=== PATIENT | male | born 1970 | race Caucasian/White ===

== ENCOUNTER 2021-03-11 11:47 | Outpatient (REF) | payer OTHER, SELFPAY | END 2021-03-11 11:48 | disposition home or self-care (01) | LOC: HO.LAB 11:47 | PROVIDERS: PCP Internal Medicine; Visit Provider Internal Medicine | DX: Z20.822 Contact with and (suspected) exposure to COVID-19 (principal) | CPT/HCPCS: C9803; U0003; U0005 ==

== ENCOUNTER 2021-03-27 21:31 | Emergency (ER) | payer OTHER, SELFPAY ==
--- NOTE | 2021-03-27 | ECG_ITS ---
Test Reason : OVERDOSE Blood Pressure : / mmHG Vent. Rate : 090 BPM Atrial Rate : 090 BPM P-R Int : 174 ms QRS Dur : 110 ms QT Int : 384 ms P-R-T Axes : 035 041 023 degrees QTc Int : 469 ms Normal sinus rhythm Incomplete right bundle branch block Borderline ECG When compared with ECG of 27-SEP-2019 06:37, No significant change was found Referred By: Generic ED Physician Electronically Signed By:YANY SHIN MD
[2021-03-27 21:50] VITALS: BP 136/87; BP 158/92; PULSE 100; PULSE 107; RESP 16; TEMP 36.6; O2SAT 100; O2SAT 97; BMI 33.0
[2021-03-27 22:26] LABS: Basophils Percent Auto 0.2 % (0-2); Eosinophils Percent Auto 0.5 % (0-4); Hematocrit 40.9 % (42.0-52.0); Hemoglobin 14.5 g/dl (14.0-18.0); Imm Gran Abs Auto 0.02 X10*3/uL (0.00-0.03); Imm Gran Pct Auto 0.2 % (0.0-0.4); Lymphocytes Absolute Auto 1.1 X10*3/uL (1.2-4.9); MANUAL DIFF FLAG NO; Mean Corpuscular HGB Conc 35.5 g/dl (31.0-36.0); Mean Corpuscular Hemoglobin 32.7 pg (27.0-33.0); Mean Corpuscular Volume 92.3 fL (80.0-98.0); Mean Platelet Volume 9.1 fL (9.4-12.4); Monocytes Absolute Auto 0.5 X10*3/uL (0.1-1.2); Monocytes Percent Auto 5.6 % (2-11); Neutrophils Absolute Auto 6.7 x10*3/uL (2.0-8.3); Neutrophils Percent Auto 80.5 % (45-73); Platelet Count 209 X10*3/uL (160-400); Red Blood Count 4.43 X10*6/uL (4.60-5.80); Red Cell Distribution Width 11.9 % (11.0-16.0); White Blood Count 8.3 X10*3/uL (4.8-10.8)
--- NOTE | 2021-03-27 22:28 | ED_ITS ---
HPI - Overdose General Chief Complaint: ETOH/Substance Use Stated Complaint: OD Time Seen by Provider: 03/27/21 22:27 Source: patient Mode of arrival: EMS History of Present Illness HPI Narrative: 51-year-old male who presents via EMS after being found unresponsive after using 1 bag of heroin and received 4 mg of Narcan in the field with good response. Patient states he typically uses monthly and that this has not happened before. Otherwise, he denies any medical problems and denies any thoughts depression or suicidal ideation. Related Data Allergies Allergy/AdvReac Type Severity Reaction Status Date / Time No Known Allergies Allergy Unverified 01/17/20 15:38 Review of Systems Review of Systems: Pertinent positives and negatives as stated in HPI 10 point review of systems is otherwise negative. PMFSH Past Medical History Source: nursing notes reviewed Medical History Substance abuse Surgical History No history of previous surgery Social History Social History Alcohol intake: never Patient Tobacco Use Status: Never used Tobacco Use of substances other than those prescribed or required for medical reasons: Yes Substance Use Type: Crack/Cocaine and Heroin Substance Use Frequency: Chronic Longstanding Last Used Substance: Just Prior to Admission Any prior treatment program specific to substance use: No Advance Directives: No Advance Directives Information Provided: Yes Physical Exam Vital Signs: Vital Signs: Last Vital Signs Temp 97.9 F 03/27/21 21:50 Pulse 100 03/27/21 21:50 Resp 16 03/27/21 21:50 BP 136/87 03/27/21 21:50 Pulse Ox 100 03/27/21 21:50 Body Mass Index 33.0 VITAL SIGNS: Reviewed. GENERAL: Well developed, well nourished, in no acute distress. HEAD: Normocephalic/atraumatic EYES: PERRLA, EOMI OROPHARYNX: no oral lesions noted, posterior pharynx clear NECK: Supple, no adenopathy LUNGS: Normal breath sounds. No adventitious sounds or accessory muscle use. SpO2<100> CARDIOVASCULAR: Regular rate and rhythm without noted murmurs ABDOMEN: Soft, non-tender, non-distended with bowel sounds. SKIN: Inspection of the skin reveals no rashes NEUROLOGIC: Alert and oriented x 4. Strength and sensation to light touch were grossly intact x 4. Course Course Course Narrative: 51-year-old male with history and clinical presentation consistent with accidental overdose, he will be observed here in the emergency room and is noted be alert and oriented x4 at this time and no concerning history or clinical findings psychiatric component. Patient was discharged with home Narcan. MDM - Overdose Lab Data Result diagrams: 03/27/21 22:19 03/27/21 22:19 Labs: Lab Results 03/27/21 03/27/21 Range/Units 22:19 22:19 WBC 8.3 (4.8-10.8) X10*3/uL RBC 4.43 L (4.60-5.80) X10*6/uL Hgb 14.5 (14.0-18.0) g/dl Hct 40.9 L (42.0-52.0) % MCV 92.3 (80.0-98.0) fL MCH 32.7 (27.0-33.0) pg MCHC 35.5 (31.0-36.0) g/dl RDW 11.9 (11.0-16.0) % Plt Count 209 (160-400) X10*3/uL MPV 9.1 L (9.4-12.4) fL Immature Gran % (Auto) 0.2 (0.0-0.4) % Neut % (Auto) 80.5 H (45-73) % Lymph % (Auto) 13.0 L (20-40) % [place] % (Auto) 5.6 (2-11) % Eos % (Auto) 0.5 (0-4) % Baso % (Auto) 0.2 (0-2) % Lymph # (Auto) 1.1 L (1.2-4.9) X10*3/uL [place] # (Auto) 0.5 (0.1-1.2) X10*3/uL Eos # (Auto) 0.0 (0.0-0.4) X10*3/uL Baso # (Auto) 0.0 (0.0-0.2) X10*3/uL Abs Immat Gran (auto) 0.02 (0.00-0.03) X10*3/uL Absolute Neuts (auto) 6.7 (2.0-8.3) x10*3/uL Absolute Nucleated RBC 0.000 (0.0-0.012) X10*3/uL Nucleated RBC % (auto) 0.0 (0.0-0.2) /100WBC Sodium 138 (135-145) mmol/L Potassium 3.1 L (3.3-5.1) mmol/L Chloride 104 (96-108) mmol/L Carbon Dioxide 22 (22-29) mmol/L Anion Gap 15 (12-20) BUN 14 (9-16) mg/dL Creatinine 1.00 (0.5-1.4) mg/dL Estim Creat Clear Calc 91.1 Estimated GFR > 60 Random Glucose 218 H (60-115) mg/dL Calcium 8.4 (8.4-10.2) mg/dL Total Bilirubin 0.6 (0.0-1.0) mg/dL AST 21 (5-37) U/L ALT 28 (0-40) U/L Alkaline Phosphatase 67 (39-117) U/L Total Protein 6.8 (6.5-8.0) g/dL Albumin 4.4 (3.5-5.0) g/dL ECG Data Attestation: I personally reviewed and interpreted this ECG as follows: Prior ECG tracings: available for review (09/27/2019 no acute changes on comparison) Interpretation: Sinus rhythm, HR-90, incomplete right bundle branch block, VT/QTC are within normal limits. Discharge Plan Discharge Clinical Impression: Overdose Patient Disposition: Home, Self-Care Instructions: Adult Overdose (ED) Additional Instructions: Return to the ER for worsening symptoms. Referrals: Aditya Perez MD [Primary Care Provider] - 2 days
[2021-03-27 22:43] LABS: Alanine Aminotransferase 28 U/L (0-40); Albumin Level 4.4 g/dL (3.5-5.0); Alkaline Phosphatase 67 U/L (39-117); Anion Gap 15 (12-20); Aspartate Amino Transferase 21 U/L (5-37); Bilirubin Total 0.6 mg/dL (0.0-1.0); Blood Urea Nitrogen 14 mg/dL (9-16); Calcium 8.4 mg/dL (8.4-10.2); Carbon Dioxide 22 mmol/L (22-29); Chloride 104 mmol/L (96-108); Creatinine Clr Calc Pharmacy 91.1; Estimated Glomerular Filt Rate > 60; Glucose Random 218 mg/dL (60-115); Potassium 3.1 mmol/L (3.3-5.1); Sodium 138 mmol/L (135-145); Total Protein 6.8 g/dL (6.5-8.0)
--- NOTE | 2021-03-27 22:51 | MHC.CARE ---
CARE team attempted to meet with pt, and pt was meeting with ED provider. CARE team attempted 2nd time and pt was d/c by provider with vani. No concern for SI/HI.
--- NOTE | 2021-03-27 22:56 | MHC.CARE ---
Disregard previous note, CARE team met with pt. Pt reports he is really tired . Pt declined any tx or SUDE evaluation. Pt reports he goes to AA, and has a sponsor. Pt reports that he has already called and put himself on a waitlist for IOP. Pt reports this typically does not happen for him and feels safe to return home. No SI/HI. Appears tired. Per providers note, pt will be d/c home.
[2021-03-28] MEDS: Naloxone HCl Nasal TAKE HOME 4 MG SPRAY NOSTRILALT (00:13)
[2021-03-28] MEDS: Potassium Chloride ER 20 MEQ TAB.ER.PRT 60 MEQ PO (00:14)
== END 2021-03-28 00:07 | disposition home or self-care (01) ==
PROVIDERS: Emergency Provider Student in an Organized Health Care Education/Training Program; PCP Internal Medicine
DX: T40.1X1A Poisoning by heroin, accidental (unintentional), initial encounter (principal); R40.4 Transient alteration of awareness; Y92.9 Unspecified place or not applicable
CPT/HCPCS: 36415; 80053; 85025; 93005; 99284

== ENCOUNTER 2022-11-28 15:52 | Emergency (ER) | payer OTHER, SELFPAY ==
--- NOTE | ~2022-11-28 | XR_ITS ---
EXAMINATION: XR KNEE, RIGHT CLINICAL INFORMATION: Fall COMPARISON: None available. TECHNIQUE: Four views of the right knee. FINDINGS: No fracture or dislocation. No suprapatellar joint effusion. Mild narrowing of the medial joint space height. Enthesophyte off the superior patellar pole. No focal soft tissue swelling of the anterior knee. XR/XR knee RT 3V IMPRESSION: Mild degenerative changes of the right knee without fracture.
[2022-11-28 15:57] VITALS: BP 167/83; PULSE 104; RESP 18; TEMP 36; O2SAT 97; BMI 35.3
--- NOTE | 2022-11-28 15:58 | ED_ITS ---
HPI - Extremity Injury (Lower) General Chief Complaint: Extremity Injury, Lower Stated Complaint: right knee injury from fall Time Seen by Provider: 11/28/22 16:48 Source: patient and RN notes reviewed Mode of arrival: ambulatory Limitations: no limitations History of Present Illness HPI Narrative: This is a 52-year-old male presenting to the emergency department with complaints of right knee pain since today. Patient reports that patient was carrying a basket and fell directly onto his right knee. He states that he slightly twisted his right knee. He has been able to bear weight on his right knee however reports pain with walking and with weight-bearing. Reports occasional pain to his knees however no other trauma, injury or surgeries to his knees. Denies any fevers or chills. He denies hitting his head or loss of consciousness. He is otherwise feeling well. No other complaints or concerns at this time. MD complaint: knee injury Onset (ago): day(s) Type of Injury: blunt Place: home Severity: moderate Relieving factors: nothing Exacerbating factors: nothing Associated symptoms: able to partially bear weight Other symptoms: none Related Data Allergies Allergy/AdvReac Type Severity Reaction Status Date / Time No Known Allergies Allergy Verified 11/28/22 16:00 Review of Systems Review of Systems: Yes all other systems are reviewed and are negative PMFSH Past Medical History Attestation statement: The following information was validated with the patient. Medical History Substance abuse Surgical History No history of previous surgery Social History Social History Alcohol intake: never Patient Tobacco Use Status: Never used Tobacco Smoked in Last 30 Days: No Use of substances other than those prescribed or required for medical reasons: No Substance Use Type: Crack/Cocaine and Heroin Advance Directives: No Advance Directives Information Provided: Yes Physical Exam Vital Signs: Vital Signs: Last Vital Signs Temp 98 F 11/28/22 17:41 Pulse 95 11/28/22 17:41 Resp 18 11/28/22 17:41 BP 144/91 H 11/28/22 17:41 Pulse Ox 99 11/28/22 17:41 O2 Del Method Room Air 11/28/22 17:41 BMI result Body Mass Index 35.3 Const: Other: General: Awake, alert, and oriented X3. No acute distress. HEENT: Normal inspection CVS: Normal heart rate and rhythm. Pulses normal. Respiratory: No respiratory distress Skin: Warm, dry, no rashes noted to exposed skin. Normal skin color. Normal skin turgor. Extremities: Right knee with obvious deformity or swelling. Patient has tenderness to palpation along the medial joint line. No laxity with varus and valgus strain. No tenderness with posterior and anterior drawer test. Distal sensation circulation intact. No erythema or ecchymosis noted. Range of motion is full and intact however with pain elicited Neuro: Oriented X 3. No motor deficit. No sensory deficit. Course Course Course Narrative: This is a rapid medical exam. Deferred additional HPI, ROS, PE to primary provider. 52 yo male here with right knee after a trip and fall landing direct on the knee. No additional injury. Will check x-rays. VSS Reevaluation(s) Reevaluation #1: Discussed with patient that patient has degenerative changes in his right knee, but no fractures seen. Discussed at length that x-rays can only see bones, no ligaments or tendons. Symptoms likely due to knee contusion versus any sprain, strain will treat conservatively with Seth wrap, NSAIDs, rest and ice. Patient given referral to Orthopedics for further treatment and evaluation. Patient declines crutches at this time. Patient understands and agrees with plan. Patient stable for discharge. Medical Decision Making Medical Decision Making MDM Narrative: 52-year-old male presenting to the emergency department for evaluation of right knee pain since today. He had a mechanical fall and landed directly onto his right knee. On arrival, patient mildly hypertensive, likely due to pain. Symptoms and clinical suspicion for knee contusion versus internal derangement of ligaments. Patellar fracture unlikely given patella is nontender. Will obtain x-ray for rule out. Patient is ambulatory with steady gait. Plan: X-ray Differential Diagnosis Differential Diagnoses: The differential diagnosis associated with the presentation includes Patellar fracture, knee contusion, knee sprain, strain, septic joint - unlikely Independent Interpretation I performed an independent interpretation of an: Plain X-Ray Interpretation: X-rays reviewed by me, and I agree with radiology report. Radiology Impression Discussion of test interpretation with radiology: I have reviewed the radiologist's reading. Radiologist Impression: EXAMINATION: XR KNEE, RIGHT? CLINICAL INFORMATION: Fall? COMPARISON: None available.? TECHNIQUE: Four views of the right knee. FINDINGS: No fracture or dislocation. No suprapatellar joint effusion. Mild narrowing of the medial joint space height. Enthesophyte off the superior patellar pole. No focal soft tissue swelling of the anterior knee.? XR/XR knee RT 3V IMPRESSION: Mild degenerative changes of the right knee without fracture. ? Dictated By: Aditya Varghese MD Signed By: <Electronically signed by Aditya Varghese MD in [place]> 11/28/22 1705 DD/ 1609 TD/TT:? Precipitation Equipment Tender: PD Discharge Plan Discharge Clinical Impression: Right knee sprain Patient Disposition: Home, Self-Care Instructions: Knee Sprain (ED), How to Use an Elastic Bandage (ED) Additional Instructions: Please rest, ice, use Seth wrap and elevate your right leg. Please perform gentle movements of your right knee and leg. Please follow-up with Orthopedics, call to make an appointment. Take ibuprofen or Tylenol as needed for your symptoms. If any new or worsening symptoms occur please return for re-evaluation. Referrals: [facility] [Provider Group] Interventions: ED Discharge Assessment Last Done: 11/28/22 17:49 Discharge Date/Time: 11/28/22 17:49
[2022-11-28 17:41] VITALS: BP 144/91; PULSE 95; RESP 18; TEMP 36.6; O2SAT 99
--- NOTE | 2022-11-28 17:48 | PC.NURSE ---
refused constanza eugene aware. applied aj wrap. aox4. no distress
== END 2022-11-28 17:49 | disposition home or self-care (01) ==
PROVIDERS: Emergency Provider Internal Medicine; PCP Internal Medicine
DX: M25.561 Pain in right knee (principal)
CPT/HCPCS: 73562; 99284

== ENCOUNTER 2022-12-02 13:21 | Outpatient (AMB) | payer OTHER, SELFPAY ==
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
[2022-12-02 13:40] VITALS: BMI 35.2
== END 2022-12-02 14:09 | disposition home or self-care (01) ==
PROVIDERS: PCP Internal Medicine; Visit Provider Orthopaedic Surgery
DX: S83.241A Other tear of medial meniscus, current injury, right knee, initial encounter (principal)
CPT/HCPCS: 99202

== ENCOUNTER → 2022-12-02 13:21 | Outpatient (BNVA) | payer OTHER, SELFPAY | PROVIDERS: PCP Internal Medicine; Visit Provider Orthopaedic Surgery | DX: S83.241A Other tear of medial meniscus, current injury, right knee, initial encounter (principal) | CPT/HCPCS: 99202 ==

== ENCOUNTER 2023-04-09 11:23 | Emergency (ER) | payer OTHER, SELFPAY ==
[2023-04-09 12:01] VITALS: BP 158/94; PULSE 93; RESP 19; TEMP 36.6; O2SAT 98; BMI 34.8
--- NOTE | 2023-04-09 12:01 | ED_ITS ---
HPI - Neck Pain/Injury General Chief Complaint: Extremity Problem Stated Complaint: neck pain Time Seen by Provider: 04/09/23 13:09 Source: patient Mode of arrival: ambulatory Limitations: no limitations History of Present Illness HPI Narrative: Patient is a 53 year old assigned male at with no reported medical history presenting to the emergency department today with left sided neck pain. Patient states that 2 days ago he was moving some boxes and tweaked his neck. Patient states that he has had pain ever since. Patient denies any dizziness, lightheadedness, abdominal pain, nausea, vomiting, fever, chills, blurry vision, double vision, loss of vision, chest pain, difficulty breathing, shortness of breath, back pain, night sweats, pain with urination, increased urinary frequency, increased urinary urgency, blood in his urine or stool, syncope or a near syncopal episode, bowel incontinence, bladder incontinence, bowel retention, bladder retention, or any other complaints at this time. MD complaint: neck pain Onset (ago): day(s) (2) Severity: mild Severity scale (1-10): 3 Quality: dull Relieving factors: none Exacerbating factors: movement of neck Associated symptoms: none Treatments prior to arrival: none Related Data Previous Rx's Medication Instructions Recorded meloxicam 15 mg tablet 15 mg PO DAILY #30 tabs 12/02/22 tramadol 50 mg tablet 50 mg PO Q8H PRN pain #60 tabs 12/02/22 cyclobenzaprine 5 mg tablet 5 mg PO TID PRN muscle spasm 7 04/09/23 days #21 tabs Allergies Allergy/AdvReac Type Severity Reaction Status Date / Time No Known Allergies Allergy Verified 11/28/22 16:00 Review of Systems Constitutional: Constitutional: Reports no additional constitutional complaints, Denies chills, Denies fever(s) and Denies night sweats Eyes: Eyes: Reports no additional eye complaints, Denies blurry vision, Denies change in vision, Denies diplopia, Denies eye discharge, Denies loss of vision and Denies eye pain ENT: Denies dizziness and Reports neck pain Cardiovascular: Cardiovascular: Reports no additional cardiovascular c omplaints, Denies chest pain, Denies lightheadedness, Denies Loss of Consciousness and Denies dyspnea Respiratory: Respiratory: Reports no additional respiratory complaints and Denies dyspnea Gastrointestinal: Gastrointestinal: Reports no additional gastrointestinal complaints, Denies abdominal pain, Denies melena, Denies hematochezia, Denies change in bowel habits and Denies change in stool character Genitourinary: Genitourinary: Reports no additional male genitourinary complaints, Denies hematuria, Denies oliguria, Denies difficulty urinating, Denies dysuria, Denies urinary frequency, Denies urinary hesitancy, Denies urinary incontinence and Denies urinary urgency Musculoskeletal: Musculoskeletal: Reports no additional musculoskeletal complaints, Reports neck pain, Denies numbness and Denies tingling Neurologic: Denies dizziness, Denies loss of vision, Denies numbness and Denies tingling Psychiatric: Psychiatric: Reports no additional psychiatric complaints Endocrine: Endocrine: Reports no additional endocrine complaints Hematologic/Lymphatic: Hematologic/Lymphatic: Reports no additional hematologic/lymphatic complaints Allergic/Immunologic: Allergic/Immunologic: Reports no additional allergic/immunologic complaints [facility] Past Medical History Attestation statement: The following information was validated with the patient. 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 Physical Exam Vital Signs: Vital Signs: Last Vital Signs Temp 97.9 F 04/09/23 12:01 Pulse 93 04/09/23 12:01 Resp 19 04/09/23 12:01 BP 158/94 H 04/09/23 12:01 Pulse Ox 98 04/09/23 12:01 O2 Del Method Room Air 04/09/23 12:01 BMI result Body Mass Index 34.8 Const: General: cooperative, no acute distress, alert and awake Nutritional Appearance: well nourished Orientation/consciousness: patient oriented x3 Limitations: no limitations HEENT: Head: Yes normal to inspection and Yes atraumatic Ears: hearing grossly normal bilaterally and external ears normal General nose exam: Normal external nose present, no nasal discharge noted and no epistaxis Face and sinus: Yes normal facial exam, No abrasion and No laceration Mouth: Normal oral and palatal mucosa present, no drooling and no muffled voice Eyes: General: appearance normal, both eyes and all related structures Per iorbital: periorbital findings normal Eyelids: Yes eyelids normal Conjunctivae: conjunctivae normal Pupils: Equal, round and reactive pupils present EOM: EOMs intact bilaterally Neck: Neck: Yes normal visual inspection, Yes full ROM and Yes no lymphadenopathy Chest: Chest palpation & inspection: normal inspection of the chest Resp: Effort & Inspection: normal respiratory effort and able to speak in complete sentences GI: Inspection: Yes normal to inspection Neuro: General: patient oriented x3 and moves all extremities Cranial nerves: Yes Equal, round and reactive pupils present Cognition (Neuro): normal cognition Motor exam (neuro): 5/5 motor strength present throughout Sensory Exam: Normal double simultaneous stimulation for sensation Coordination: [id number] test normal Extrem: General: Yes normal to inspection, Yes full ROM and Yes capillary refill normal Psych: Appearance: grossly normal Mental Status: mental status grossly normal Affect: normal affect Attitude: cooperative Thought process: Normal thought process present Thought content: Normal thought content present Insight: Good insight present (Psych) Course Course Course Narrative: This is a rapid medical exam. Deferred additional HPI, ROS, PE to primary provider. 53 yo male here with complaints of posterior neck pain with limited ROM. Pain was with lifting box at work. No pain in arms, weakness/numbness tingling in UE Will obtain x-rays VSS Medications Administered Discontinued Medications Generic Name Dose Route Start Last Admin Trade Name Mohanq PRN Reason Stop Dose Admin Cyclobenzaprine HCl 5 mg 04/09/23 13:10 04/09/23 13:23 Cyclobenzaprine Hcl 5 Mg Tablet PO 04/09/23 13:11 5 mg ONCE ONE Administration Ketorolac Tromethamine 15 mg 04/09/23 13:10 04/09/23 13:23 Ketorolac Tromethamine 15 Mg/Ml Vial IM 04/09/23 13:11 15 mg ONCE ONE Administration Medical Decision Making Medical Decision Making MDM Narrative: Patient is a 53 year old assigned male at with no reported medical history presenting to the emergency department today with neck pain. Patient's physical exam was unremarkable. I explained my physical exam findings to the patient. I answered all questions asked by the patient. Patient received PO Flexeril and IM Toradol which he stated helped his symptoms significantly. I stressed the importance of the patient taking his medication as prescribed. I stressed the importance of the patient following up with his primary care provider. I stressed the importance of the patient returning to the emergency department immediately if his symptoms were to worsen or if he were to develop any dizziness, shortness of breath, difficulty breathing, chest pain, blurry vision, loss of vision, nausea, vomiting, abdominal pain, fever, chills, back pain, or any other complaints. Patient verbalized agreement and understanding with this treatment plan and discharge. Differential Diagnosis Differential Diagnoses: The differential diagnosis associated with the presentation includes Neck pain Cervical strain Cervical sprain Prescription Management I considered prescription management with: Pain Medication (neck pain) Discharge Plan Discharge Clinical Impression: Cervical strain Patient Disposition: Home, Self-Care Instructions: Cervical Sprain (ED) Additional Instructions: Follow up with your primary care provider. Return to the emergency department immediately if your symptoms worsen or if you develop any dizziness, shortness of breath, difficulty breathing, chest pain, blurry vision, loss of vision, nausea, vomiting, abdominal pain, fever, chills, back pain, or any other complaints. Prescriptions: New cyclobenzaprine 5 mg tablet 5 mg PO TID PRN (Reason: muscle spasm) 7 Days Qty: 21 0RF No Action meloxicam 15 mg tablet 15 mg PO DAILY Qty: 30 2RF tramadol 50 mg tablet 50 mg PO Q8H PRN (Reason: pain) Qty: 60 0RF Referrals: Aditya Perez MD [Primary Care Provider] - Stand Alone Forms: Work/School Release Interventions: ED Discharge Assessment Last Done: 04/09/23 13:32 Discharge Date/Time: 04/09/23 13:32 Print Language: Setswana
[2023-04-09] MEDS: Cyclobenzaprine HCl 5 MG TABLET PO (13:23)
[2023-04-09] MEDS: Ketorolac Tromethamine 15 MG/ML VIAL IM (13:23)
== END 2023-04-09 13:32 | disposition home or self-care (01) ==
PROVIDERS: Emergency Provider Emergency Medicine Emergency Medical Services; PCP Internal Medicine
DX: S16.1XXA Strain of muscle, fascia and tendon at neck level, initial encounter (principal); X58.XXXA Exposure to other specified factors, initial encounter; Y93.89 Activity, other specified; Y92.9 Unspecified place or not applicable; Y99.9 Unspecified external cause status; M54.2 Cervicalgia
CPT/HCPCS: 96372; 99283; J1885